=== PATIENT | female | born 1985 | race Caucasian/White ===

== ENCOUNTER → 2017-08-11 | Outpatient (CLI) | payer OTHER ==
[~2017-08-11] MED LIST: BUSP-8 PO; LMC25 PO; LTH300C PO; NRN300 PO; TRAZ1TAB16 PO
[2017-08-11 12:32] LABS: ALT/SGPT 19 U/L (12-78); AST/SGOT 16 U/L (15-37); BLOOD UREA NITROGEN 5 mg/dl (7-18); BUN/CREATININE RATIO 6.1 (10-20); CALCIUM 9.1 mg/dl (8.5-10.1); CARBON DIOXIDE 25 mmol/L (21-32); CHLORIDE 104 mmol/L (98-107); CREATININE 0.85 mg/dl (0.60-1.20); GLUCOSE 89 mg/dl (70-99); POTASSIUM 3.9 mmol/L (3.5-5.1); SODIUM 135 mmol/L (136-145)
[2017-08-11 12:42] LABS: ALB/GLOB RATIO 1.2 (0.9-2); ALKALINE PHOSPHATASE 77 U/L (45-117)
[2017-08-16 15:33] LABS: MICROSOMAL AB 6 IU/ML (<9); TESTOSTERONE,TOTAL 37 ng/dL (2-45); TSI <89 % baseline (<140)
--- NOTE | 2017-08-29 07:11 | CODING QUERY MEDICAL NECESSITY ---
CQSUPPORTING DIAGNOSIS NEEDED A supporting diagnosis is required for the test/procedure performed on this patient in order for us to be reimbursed by the patient's insurance. Please provide a supporting diagnosis for the following test/procedure listed below next to the test name along with your signature. *If there is no additional diagnosis for this patient that would support the following test/procedure please document that below next to the test/procedure. Test(s)/Procedure(s) that require a supporting diagnosis: DOS 08/11/17 VITAMIN D TEST THYROID TESTS Provider Signature: Date: Thank you Thelma Cruz Health Information Management Once completed, please kindly fax back to [phone] For questions please call [phone]
== END | disposition home or self-care (01) ==
LOC: C.LAB1850 10:12
PROVIDERS: ATTEND Internal Medicine Endocrinology, Diabetes & Metabolism
DX: E03.9 Hypothyroidism, unspecified (principal); M79.1 Myalgia; N25.1 Nephrogenic diabetes insipidus; L65.9 Nonscarring hair loss, unspecified; E05.00 Thyrotoxicosis with diffuse goiter without thyrotoxic crisis or storm; E55.9 Vitamin D deficiency, unspecified

== ENCOUNTER → 2017-08-15 | Outpatient (CLI) | payer OTHER ==
[2017-08-15 15:40] LABS: URINE APPEARANCE CLEAR (CLEAR); URINE BILIRUBIN NEG (NEG); URINE COLOR YELLOW; URINE NITRITE NEG (NEG); URINE PH 7.5 (4.5-7.5); UROBILINOGEN NEG (NEG)
[2017-08-15 15:57] LABS: BLOOD UREA NITROGEN 4 mg/dl (7-18); BUN/CREATININE RATIO 4.8 (10-20); CALCIUM 9.9 mg/dl (8.5-10.1); CARBON DIOXIDE 26 mmol/L (21-32); CHLORIDE 101 mmol/L (98-107); CREATININE 0.83 mg/dl (0.60-1.20); GLUCOSE 79 mg/dl (70-99); MANUAL MICROSCOPIC REQUIRED? NO; PHOSPHORUS 2.6 mg/dl (2.5-4.9); POTASSIUM 3.4 mmol/L (3.5-5.1); REVIEW REQ? NO; SODIUM 134 mmol/L (136-145)
== END | disposition home or self-care (01) ==
LOC: C.LAB1850 14:15
PROVIDERS: ATTEND Internal Medicine Nephrology
DX: N25.1 Nephrogenic diabetes insipidus (principal)

== ENCOUNTER 2017-09-10 23:37 | Emergency (ER) | payer OTHER ==
[~2017-09-10] VITALS: Ht 162.6 cm; Wt 74.7 kg
[2017-09-10 23:51] VITALS: TEMP 37.6; Ht 162.6 cm; Wt 74.7 kg
--- NOTE | 2017-09-11 00:11 | EMERGENCY ROOM VISIT NOTE ---
History First contact with patient: 23:54 Chief Complaint: TOE PAIN, INJURY Stated Complaint: POSSIBLE BROKEN TOE;NUMBNESS,TINGLING IN TOE/LEG History of Present Illness The patient is a 32 year old female who presents to the Emergency Room with complaints of an injury to the left second toe. The patient states that earlier in the day, her son was pushing an ottoman and the leg of the ottoman went over her left second toe. She states the pain worsened throughout the day and began radiating up her left leg with numbness of the leg. She rates her discomfort an 8/10. She is able to walk on the toe but states it is painful to do so. She reports some mild bruising. Review of Systems A 6 point review of systems was reviewed with the patient with pertinent positives and negatives as per history of present illness. All else were negative. Past Medical/Surgical History Medical Problems: (1) Asthma, Unspecified (2) sleeping disorder Family History Cancer FH: aneurysm Hypertension Lung disease Social History Smoking Status: Never Smoker Alcohol Use: occasionally Marital Status: single Housing Status: lives with family Occupation Status: unemployed Current/Historical Medications Scheduled Buspirone Hcl (Buspirone Hcl), 20 MG PO TID Gabapentin (Gabapentin), 300 MG PO TID Lamotrigine (Lamotrigine), 25 MG PO QAM [place] Carbonate ([place] Carbonate), 1 CAP PO UD Trazodone Hcl (Desyrel), 50 MG PO HS Physical Exam Vital Signs Date Time Temp Pulse Resp B/P (MAP) Pulse Ox O2 Delivery O2 Flow Rate FiO2 09/11/17 00:51 88 18 134/84 96 09/11/17 00:42 74 16 113/72 09/10/17 23:51 37.6 93 20 135/96 94 Room Air Physical Exam VITALS: Vitals are noted on the nurse's note and reviewed by myself. Vital signs stable. GENERAL: This is a 32-year-old female, in no acute distress, nondiaphoretic, well-developed well-nourished. SKIN: No lacerations or abrasions noted. MUSCULOSKELETAL: There is minimal bruising and tenderness to palpation of the left second toe. Full range of motion of all toes. NEURO: Patient was alert and oriented to person place and time. Normal sensation to light and sharp touch. Medical Decision & Procedures ER Provider Diagnostic Interpretation: TOE X-RAY: No acute fractures or dislocations noted. Medications Administered Medications (Trade) Dose Ordered Sig/Manas Route Start Time Stop Time Status Last Admin Dose Admin Acetaminophen (Tylenol Tab) 1,000 mg STK-MED ONCE PO 09/11/17 00:47 09/11/17 00:48 DC 09/11/17 00:49 1,000 MG Medical Decision Differential diagnosis includes fracture, contusion, dislocation, among others. The patient is a 32-year-old female who presents today complaining of toe pain after an injury which occurred earlier today. An x-ray was obtained and reviewed by myself with no obvious fractures or other bony abnormalities. Patient was placed in a postoperative shoe for comfort. Conservative measures were discussed with the patient. She will follow-up with orthopedics as needed. She verbalized understanding of my assessment and treatment plan and was discharged home in good condition. Medication Reconcilliation Current Medication List: was personally reviewed by me Blood Pressure Screening Patient's blood pressure: Normal blood pressure Impression Primary Impression: Contusion of toe of left foot Departure Information Dispostion Home / Self-Care Condition GOOD Referrals No Doctor, Assigned (PCP) Patient Instructions My [facility] Additional Instructions Wear the postoperative shoe as needed for pain in the toe. For pain control, you can use the following heyc-tyw-egqllkc medicines (if >12 yo): - Regular strength (325mg/tab) Tylenol (acetaminophen) 2 tabs every 4-6 hours as needed. Do not exceed 12 tablets in a 24 hour period. Avoid taking more than 4 grams (4000 mg) of Tylenol per day. This includes any other sources of acetaminophen you may take on a regular basis. - Regular strength (200 mg/tab) Advil (ibuprofen) 1-2 tabs every 4-6 hours as needed. Do not exceed a dose of 3200 mg per day. Apply ice to the toe and elevate for swelling/pain. Follow-up with your primary care provider if there are worsening or any new/ concerning symptoms. Problem Qualifiers Primary Impression: Contusion of toe of left foot Encounter type: initial encounter Toe: unspecified toe Qualified Codes: S90.122A - Contusion of left lesser toe(s) without damage to nail, initial encounter
[2017-09-11] MEDS ORDERED: ACETAMINOPHEN 500 MG TAB PO ONE (00:47)
[2017-09-11 00:51] VITALS: BP 134/84; PULSE 88; O2SAT 96
--- NOTE | 2017-09-11 07:48 | DIAGNOSTIC IMAGING REPORT ---
LEFT SECOND TOE 3 VIEWS HISTORY: left second toe pain, injury COMPARISON: None. FINDINGS: There is no fracture or dislocation. Mild distal soft tissue swelling. No radiopaque foreign bodies. IMPRESSION: No fractures. Electronically signed by: Arnaud Delgadillo M.D. 09/11/2017 7:47 AM Dictated Date/Time: 09/11/2017 7:45 AM
== END 2017-09-11 00:51 | disposition home or self-care (01) ==
LOC: C.EDB 23:38 → C.EDC 09-11 00:51
DX: S90.122A Contusion of left lesser toe(s) without damage to nail, initial encounter (principal); W22.8XXA Striking against or struck by other objects, initial encounter; J45.909 Unspecified asthma, uncomplicated; Z82.49 Family history of ischemic heart disease and other diseases of the circulatory system

== ENCOUNTER → 2017-09-13 | Outpatient (CLI) | payer OTHER ==
[2017-09-13 13:58] LABS: THYROID STIMULATING HORMONE 0.563 uIu/ml (0.300-4.500)
== END | disposition home or self-care (01) ==
LOC: C.LAB1850 12:05
PROVIDERS: ATTEND Internal Medicine Endocrinology, Diabetes & Metabolism
DX: N25.1 Nephrogenic diabetes insipidus (principal); L65.9 Nonscarring hair loss, unspecified; E03.9 Hypothyroidism, unspecified

== ENCOUNTER → 2017-12-16 | Outpatient (CLI) | payer OTHER ==
[~2017-12-16] MED LIST changes: +TRAZ-119 PO; -TRAZ1TAB16 PO
== END | disposition home or self-care (01) ==
LOC: C.LAB 09:25
PROVIDERS: ATTEND Internal Medicine Endocrinology, Diabetes & Metabolism
DX: L65.9 Nonscarring hair loss, unspecified (principal); E03.9 Hypothyroidism, unspecified; R35.8 Other polyuria

== ENCOUNTER → 2017-12-30 | Outpatient (CLI) | payer OTHER ==
[2018-01-03 16:32] LABS: TSI <89 % baseline (<140)
== END | disposition home or self-care (01) ==
LOC: C.LAB 11:13
PROVIDERS: ATTEND Internal Medicine Endocrinology, Diabetes & Metabolism
DX: E03.9 Hypothyroidism, unspecified (principal)

== ENCOUNTER → 2018-02-16 | Outpatient (CLI) | payer OTHER | END | disposition home or self-care (01) | LOC: C.LAB 11:46 | PROVIDERS: ATTEND Internal Medicine Endocrinology, Diabetes & Metabolism | DX: E03.9 Hypothyroidism, unspecified (principal) ==

== ENCOUNTER → 2018-04-09 | Outpatient (CLI) | payer OTHER | END | disposition home or self-care (01) | LOC: C.LAB 08:58 | PROVIDERS: ATTEND Internal Medicine Endocrinology, Diabetes & Metabolism | DX: E03.9 Hypothyroidism, unspecified (principal) ==

== ENCOUNTER 2022-03-09 08:46 | Inpatient (IN) ==
[2022-03-10] MEDS ORDERED: OXYTOCIN 30 UNITS/500 ML BAG IV PRN (07:50)
[2022-03-10] MEDS ORDERED: LACTATED RINGER'S 1,000 ML IV PRN (07:50)
[2022-03-10 08:25] LABS: Hematocrit (blood only) 38.5 % (37-47); Hemoglobin 13.3 g/dL (12.0-16.0); Mean Corpuscular Hemoglobin 30.7 pg (25-34); Mean Corpuscular Hgb Conc 34.5 g/dL (32-36); Mean Corpuscular Volume 88.9 fL (80-100); Mean Platelet Volume 11.4 fL (7.4-10.4); Platelet Count 210 K/uL (130-400); RDW Coefficient of Variation 13.5 % (11.5-14.5); RDW Standard Deviation 44.2 fL (36.4-46.3); Red Blood Count 4.33 M/uL (4.2-5.4); White Blood Count 14.91 K/uL (4.8-10.8)
[2022-03-10] MEDS ORDERED: DINOPROSTONE 10 MG INSERT PV ONE (08:34)
--- NOTE | 2022-03-10 08:40 | History & Physical Report ---
Date of Service March 10, 2022 Assessment & Plan (1) : Plan: Cervidil for cervical ripening Admission and Anticipated Discharge Date Admission Date: March 10, 2022 History of Present Illness Chief Complaint: INDUCTION OF LABOR Primary Care Provider: Calderon Rubi MD 36 F [id number] at 40.4 weeks admitted for induction of labor for post dates . Allergies Allergy/AdvReac Type Severity Reaction Status Date / Time fluoxetine Allergy Severe Depression Verified 03/10/22 08:04 nickel Allergy Mild Rash Verified 03/10/22 08:04 house dust Allergy Sneezing Verified 03/10/22 08:04 pollen extracts Allergy Sneezing Verified 03/10/22 08:04 Home Medications Medication Instructions Recorded Confirmed Type prenat.vits,gera,nvk-dutk-psvof 1 tab PO DAILY 03/10/22 03/10/22 History Patient History Medical History Asthma Childhood Bipolar affective disorder, mixed Depressive disorder, not elsewhere classified Graves disease Jayesh's thyroiditis History of hyperthyroidism Patient reports not a current problem. Hypoglycemia Occasionally Hypothyroidism Patient reports that her thyroid fluctuates between hyperthyroid and hypothyroid. Mood disorder Vitamin D deficiency Surgical History [place] teeth removed Family History Grandmother (Maternal) Hypertension Social History Smoking Status: Former smoker Tobacco Type: Cigarettes Hx Alcohol Use: No Hx Substance Use: Yes Prescribed Medications: Marijuana Prescribed Medications Comment: September 2021 last used Substance Use Type Other:: September 2021 Preferred Language: Telugu Communication Ability: Effective Visual Impairment: No Limitations Hearing Ability: Normal Licensed Insurance Agent Required: No Beliefs That Will Affect Care: None marital status: Single marital status details: Gabriele Jordan Current Living Situation: Alone Current Living Situation Comment: Patient lives in an apartment. 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 elective ab x5 Review of Systems All systems reviewed & are unremarkable except as noted in HPI & below Physical Exam Constitutional: WD/WN, vitals as above Eyes: PERRL, conjunctivae normal, anicteric sclerae Respiratory: normal respiratory effort, lungs clear to auscultation Cardiovascular: RRR, no murmur, no edema Skin: no rashes, warm and dry Neurologic: patellar DTR's 2+ bilat, sensation intact Psychiatric: A+Ox3, euthymic affect Genitourinary: no vaginal lesions, no adnexal mass OB Exam Abdomen: + fundal height and + estimated weight (7.5-8 lbs.) Manual OB Exam: + cervical dilation fingertip, + cervical effacement 20% and + station high OB Exam Monitor Tracing: + external FHT monitor used, + external uterine monitor used, + category I and + normal FHT variability Results & Data ([facility]) Vital Signs (Past 12 Hours) Vital Signs Temp Pulse Resp BP 03/10/22 08:06 36.5 C 20 03/10/22 07:55 112 H 135/96 Laboratory Results Laboratory Results - last 24 hr 03/10/22 08:04 WBC 14.91 H RBC 4.33 Hgb 13.3 Hct 38.5 MCV 88.9 MCH 30.7 MCHC 34.5 RDW Std Deviation 44.2 RDW Coeff of Rodolfo 13.5 Plt Count 210 MPV 11.4 H
--- NOTE | 2022-03-10 09:35 | Labor Progress Brief Note ---
Date of Service March 10, 2022 Assessment & Plan Admission and Anticipated Discharge Date Admission Date: March 10, 2022 Physical Exam Genitourinary: OB Exam Monitor Tracing: + external FHT monitor used, + external uterine monitor used, + category I and + normal FHT variability Cervidil 10 mg placed vaginally Results & Data ([facility]) Vital Signs (Past 12 Hours) Vital Signs Temp Pulse Resp BP 03/10/22 08:06 36.5 C 20 03/10/22 07:55 112 H 135/96
--- NOTE | 2022-03-10 21:18 | Labor Progress Brief Note ---
Date of Service March 10, 2022 Assessment & Plan Admission and Anticipated Discharge Date Admission Date: March 10, 2022 Physical Exam Genitourinary: Manual OB Exam: + cervical dilation fingertip, + cervical effacement 50% and + station high OB Exam Monitor Tracing: + external FHT monitor used, + external uterine monitor used, + category I and + normal FHT variability Cervidil pulled from vagina. cervix softening and still posterior. will use Cytotec 50 mcg q 4h to continue ripening Results & Data ([facility]) Vital Signs (Past 12 Hours) Vital Signs Temp Pulse Resp BP 03/10/22 19:30 36.8 C 18 03/10/22 19:27 94 H 141/95 H 03/10/22 19:26 97 H 144/106 H 03/10/22 19:25 100 H 139/99 03/10/22 15:05 36.8 C 100 H 18 133/98 03/10/22 12:28 36.6 C 03/10/22 11:43 36.8 C 91 H 18 142/85 H
[2022-03-10] MEDS ORDERED: BUTORPHANOL TARTRATE 1 MG/ML VIAL IV PRN (21:20)
[2022-03-11] MEDS ORDERED: miSOPROStoL 50 MCG TAB ONE ×2 (00:04→04:40)
[2022-03-11] MEDS: CALCIUM CARBONATE 500 MG CHEWABLE TAB PO PRN ×2 (00:07→04:56)
[2022-03-11 08:29] LABS: Basophils # (auto) 0.05 K/uL (0-0.2); Basophils % (auto) 0.4 %; Eosinophils # (auto) 0.34 K/uL (0-0.5); Eosinophils % (auto) 2.9 %; Hematocrit (blood only) 38.9 % (37-47); Hemoglobin 13.3 g/dL (12.0-16.0); Immature Granulocytes # (auto) 0.24 K/uL (0.00-0.02); Lymphocytes # (auto) 2.33 K/uL (1.2-3.4); Lymphocytes % (auto) 19.9 %; Mean Corpuscular Hemoglobin 30.7 pg (25-34); Mean Corpuscular Hgb Conc 34.2 g/dL (32-36); Mean Corpuscular Volume 89.8 fL (80-100); Mean Platelet Volume 11.8 fL (7.4-10.4); Monocytes # (auto) 1.32 K/uL (0.11-0.59); Monocytes % (auto) 11.3 %; Neutrophils # (auto) 7.43 K/uL (1.4-6.5); Neutrophils % (auto) 63.5 %; Platelet Count 175 K/uL (130-400); RDW Coefficient of Variation 13.7 % (11.5-14.5); Red Blood Count 4.33 M/uL (4.2-5.4); White Blood Count 11.71 K/uL (4.8-10.8)
[2022-03-11] MEDS ORDERED: LACTATED RINGER'S 1,000 ML IV SCH ×3 (08:30→13:00)
--- NOTE | 2022-03-11 08:30 | Obstetrical Progress Note ---
Date of Service March 11, 2022 Assessment & Plan Admission and Anticipated Discharge Date Admission Date: March 10, 2022 Subjective Patient is seen and examined. Reviewed her history from her records and confi rmed with her. She was admitted yesterday by Dr. Ascencio for induction of labor for postdates. She received 1 dose of Cervidil which was removed last night and took 2 doses of p.o. Cytotec. She has been feeling contractions for the last 12 hours or so. They have been coming every 2 to 3 minutes and pain is 7 out of 10. She denies leakage of fluid or vaginal bleeding. She reports good movements. GBS is negative. Her prior [facility] was done here as well as in [place] for part of her . She had ultrasound in [place] as well as here at [facility] and baby has been measuring normal and cephalic presentation. heart rate has been in the category 1, [place] showing contractions every 2 to 3 minutes, Vaginal exam: cervix is tight 1 cm, 50% effaced, unable to feel any presenting part. Bedside ultrasound confirmed breech presentation. Discussed the findings and risks of vaginal breech delivery and recommended primary delivery. Understands it is a major surgery with risks of bleeding, infection, injury to surrounding organs, longer recovery, increased risk of DVT, PE. Plan, IV fluids, n.p.o., labs, proceed with primary . Patient agrees with plan. All questions were answered. Results & Data ([facility]) Vital Signs (Past 12 Hours) Vital Signs Temp Pulse Resp BP 03/11/22 07:36 37.7 C H 20 03/11/22 07:33 80 137/93 03/11/22 06:38 92 H 131/92 03/11/22 04:52 90 144/94 H 03/11/22 00:08 85 147/85 H 03/11/22 00:00 36.7 C 18 03/10/22 23:43 96 H 137/91
[2022-03-11 08:45] LABS: Albumin Globulin Ratio 1.3 (0.9-2); Albumin Level 3.3 gm/dl (3.4-5.0); Bilirubin,Total 0.2 mg/dl (0.2-1.0); Calcium 10.2 mg/dl (8.5-10.1); Creatinine Clr Calc Pharmacy 106.6 ml/min; Est GFR (African American) 108.2 ml/min; Est GFR (Non-African American) 93.4 ml/min; Globulin 2.6 gm/dl (2.5-4.0); Potassium 4.3 mmol/L (3.5-5.1); Total Protein 5.9 gm/dl (6.0-8.3)
[2022-03-11] MEDS ORDERED: ceFAZolin 2000MG 2,000 MG/15 ML SYR IV SCH (09:00)
[2022-03-11] MEDS ORDERED: CITRIC ACID/SODIUM CITRATE 15 ML UDC PO SCH (09:00)
[2022-03-11] MEDS ORDERED: MoRPHine SULFATE PF 1 MG/ML 10 ML AMP/VIAL ONE (11:38)
[2022-03-11] MEDS ORDERED: KETOROLAC 30 MG/ML VIAL IV PRN (12:01)
--- NOTE | 2022-03-11 12:11 | Anesthesiology Consultation ---
Date of Service March 11, 2022 Assessment & Plan Chart Review Chart Review: Acceptable Risk for Surgery Consults Requested none History Surgery Operation Date: 03/11/22 08:20 Proposed Procedures p Section in LD - Leny Ann MD Height/Weight Height: 5 ft 4 in Weight: 92.533 kg Allergies Allergy/AdvReac Type Severity Reaction Status Date / Time fluoxetine Allergy Severe Depression Verified 03/10/22 08:04 nickel Allergy Mild Rash Verified 03/10/22 08:04 house dust Allergy Sneezing Verified 03/10/22 08:04 pollen extracts Allergy Sneezing Verified 03/10/22 08:04 Medications Home Medications Medication Instructions Recorded Confirmed Last Taken prenat.vits,gera,rnc-ypyx-ymhmw 1 tab PO DAILY 03/10/22 03/10/22 03/10/22 Active Medications Generic Name Dose Route Start Last Admin Trade Name Freq PRN Reason Stop Dose Admin Calcium Carbonate 500 mg 03/10/22 23:46 03/11/22 04:56 Calcium Carbonate 500 Mg Chewable Tab PO 04/09/22 23:45 500 mg Q4 PRN Administration Indigestion Lactated Ringer's 1,000 mls @ 125 mls/hr 03/11/22 09:30 03/11/22 09:30 Lr IV 04/10/22 09:29 125 mls/hr .Q8H JORDEN Administration Past Medical History Medical History Asthma Childhood Bipolar affective disorder, mixed Depressive disorder, not elsewhere classified Graves disease Jayesh's thyroiditis History of hyperthyroidism Patient reports not a current problem. Hypoglycemia Occasionally Hypothyroidism Patient reports that her thyroid fluctuates between hyperthyroid and hypothyroid. Mood disorder Vitamin D deficiency Past Family History Family History Grandmother (Maternal) Hypertension Past Surgical History Surgical History [place] teeth removed Social History Smoking Status: Former smoker Hx Alcohol Use: No Hx Substance Use: Yes substance use type: marijuana Substance Use Type Other:: September 2021 Physical Exam Vital Signs Last Vital Signs Temp 37.7 C H 03/11/22 07:36 Pulse 98 H 03/11/22 10:53 Resp 20 03/11/22 07:36 BP 160/106 H 03/11/22 10:53 Testing Laboratory Results 03/11/22 08:01 03/11/22 08:01
[2022-03-11] MEDS ORDERED: fentaNYL citrate 100 MCG/2 ML VIAL ONE (12:17)
[2022-03-11] MEDS ORDERED: OXYTOCIN 10 UNITS/ML 10ML VIAL ONE (12:18)
[2022-03-11] MEDS ORDERED: LACTATED RINGER'S 500 ML IV PRN (12:23)
[2022-03-11] MEDS ORDERED: ePHEDrine sulfate 50 MG/ML AMP IV PRN (12:23)
[2022-03-11] MEDS ORDERED: NALBUPHINE HCL INJ 10 MG/ML AMP IV PRN (12:23)
[2022-03-11] MEDS ORDERED: HYDROmorphone INJ 0.5 MG/0.5 ML SYR IV PRN (12:23)
[2022-03-11] MEDS ORDERED: NALOXONE HCL 0.08 MG in SYRINGE 1.8 ML IV PRN (12:23)
[2022-03-11] MEDS ORDERED: MoRPHine SULFATE PF 1 MG/ML 10 ML AMP/VIAL INT SPINAL ONE (12:23)
[2022-03-11] MEDS ORDERED: diphenhydrAMINE 50 MG/ML VIAL IV PRN (12:23)
[2022-03-11] MEDS ORDERED: NALOXONE HCL 0.4 MG/1 ML VIAL/CARP IV PRN (12:23)
[2022-03-11] MEDS ORDERED: NALOXONE HCL 1 MG in SODIUM CHLORIDE 0.9% 1000ML 1,000 ML IV PRN (12:23)
[2022-03-11] MEDS ORDERED: NO NARCOTICS OR SEDATIVES SCH (12:30)
[2022-03-11] MEDS ORDERED: SODIUM CHLORIDE 0.9% 1000ML 1,000 ML IV SCH (12:30)
[2022-03-11] MEDS ORDERED: DC INTRASPINAL MORPHINE SCH (12:30)
[2022-03-11] MEDS ORDERED: ePHEDrine sulfate 50 MG/ML SYR ONE (12:52)
[2022-03-11] MEDS ORDERED: MAGNESIUM HYDROXIDE SUSP 30 ML UDC PO PRN (12:55)
[2022-03-11] MEDS ORDERED: HYDROCORTISONE ACETATE 25 MG SUPP PR PRN (12:55)
[2022-03-11] MEDS ORDERED: BENZOCAINE 20% AER SPR 82.5 GM CAN EXT PRN (12:55)
[2022-03-11] MEDS ORDERED: DIPHTHERIA/TETANUS/PERTUSSIS 0.5 ML SYR/VIAL IM ONE (12:55)
[2022-03-11] MEDS ORDERED: SENNA 8.6 MG TAB PO PRN (12:55)
[2022-03-11] MEDS ORDERED: MEASLES, MUMPS & RUBELLA VIRUS VIAL SQ ONE (12:55)
--- NOTE | 2022-03-11 13:00 | Post Operative Brief Note ---
Immediate Post Op Note v1 Date of Surgery March 11, 2022 Pre & Post Diagnosis Operation Date: 03/11/22 08:20 Pre-Op Diagnosis: Breech Presentation Post-Op Diagnosis: Breech Presentation I identified the patient and participated in the time-out.: Yes Procedure Operation Date: 03/11/22 08:20 Actual Procedures p Section in LD; Live Female at 1209(Bilateral) - Leny Mireles MD Surgeon Leny Ann MD Polysomnographic Technician RAFITA Levin Estimated Blood Loss 600 Findings Consistent with Post-Op Diagnosis Drains Daugherty Catheter Anesthesia Type Spinal Complications none
--- NOTE | 2022-03-11 13:40 | Operative Report (OR) ---
DATE OF SURGERY: 03/10/2022. POSTOPERATIVE DIAGNOSES: The patient is a 36-year-old G2, P1-0-0-1, at 40 weeks and 5 days of gestation, who was scheduled for induction of labor for postdates found to be complete breech presentation. POSTOPERATIVE DIAGNOSES: The patient is a 36-year-old G2, P1-0-0-1, at 40 weeks and 5 days of gestation, who was scheduled for induction of labor for postdates found to be complete breech presentation. PROCEDURE: Primary low transverse with Pfannenstiel skin incision. SURGEON: Leny Ann MD MARKET INVESTIGATOR: RAFITA Levin ESTIMATED BLOOD LOSS: 600 mL. DRAINS: Daugherty catheter drained 375 mL of clear urine. ANESTHESIA: Spinal. ANESTHESIOLOGIST: Dr. Arriola. COMPLICATIONS: None. FINDINGS: Baby was a viable female delivered in complete breech presentation at 12:09 am, Apgars were 8/9, weight is 4269 gr. Maternal findings, normal uterus, fallopian tubes, and ovaries. DESCRIPTION OF PROCEDURE: The patient was taken to the operating room where spinal anesthesia was given without difficulty. She was placed in dorsal supine position with a leftward tilt. She was prepared and draped in the usual sterile fashion. A Pfannenstiel skin incision was made, carried through to the underlying layer of fascia with the Bovie. Fascia was incised in the midline. Incision was extended laterally with the help of Aguilar scissors. Upper aspect of the fascial incision was grasped with 2 Livier clamps, elevated, and underlying rectus muscles were dissected off sharply with Aguilar scissors. Same thing was done on the lower aspect of the fascial incision. Rectus muscles were in the midline. Peritoneum was entered bluntly with fingers. Peritoneal incision was extended superiorly and inferiorly with good visualization of the bladder. A bladder blade was inserted. Vesicouterine peritoneum was identified, grasped with pickups, entered sharply with Metzenbaum scissors. Bladder flap was created digitally and bladder blade was reinserted. Lower uterine segment was incised in a transverse fashion. Incision was extended laterally with the bandage scissors. Membranes were ruptured. Clear fluid was obtained. Baby's feet were delivered and then legs and then buttocks and then the abdomen, body, and then arms in flexion and the head without difficulty within less than a minute. Mouth and nose were suctioned. Cord was clamped x2 and cut at 1-minute delay. Baby was vigorously moving and crying at that point. Baby was handed off to the waiting pediatric team with Dr. Bertrand. Then the cord blood was obtained and placenta was delivered manually as intact and complete. Unable to exteriorize uterus due to its size. It appeared to be normal, but enlarged. It was kept inside of the pelvis and abdomen. The uterus was cleared of all clots and debris inside and was firm and well contracted. Uterine incision was repaired with 0 Vicryl in a running locked fashion and a second imbricating layer was placed with another suture in a running locked fashion. There was oozing close to the left corner, which was controlled with yfqpxh-lb-pjptt stitches x2 and the incision was hemostatic. Then the gutters were cleared of all clots and debris, irrigated with warm normal saline and suctioned, and ovaries and fallopian tubes were checked to be normal and the pelvis was irrigated with warm normal saline and suctioned. Incision was checked to be hemostatic again. Parietal peritoneum was reapproximated with 3-0 Vicryl in a running fashion. Rectus muscles were brought together with the same suture in a running fashion. Then under the rectus fascia and over the rectus muscles were checked to be hemostatic. Rectus fascia was reapproximated with 0 Vicryl in a running fashion starting from both corners meeting in the midline and the subcuticular fat tissue was brought together with 3-0 Vicryl in a running fashion. Skin was closed with lela. The patient tolerated the procedure well. Sponge, lap, needle count was correct x3. No complications happened. I was present and my PA was present during whole procedure. My bilingual executive assistant was needed for retraction, visualization, hemostasis, control, and aid in delivery of the baby. Job ID: [id number] [facility]
--- NOTE | 2022-03-11 16:05 | Anesthesiology Progress Note ---
Date of Service March 11, 2022 Anesthesia Post Procedure Vital Signs Vital Signs: Temp Pulse Resp BP Pulse Ox 03/11/22 15:57 99 H 97 03/11/22 15:52 91 H 97 03/11/22 15:47 102 H 97 03/11/22 15:42 94 H 97 03/11/22 15:37 102 H 98 03/11/22 15:32 101 H 97 03/11/22 15:31 100 H 134/94 03/11/22 15:27 98 H 98 03/11/22 15:22 98 H 98 03/11/22 15:17 93 H 98 03/11/22 15:12 99 H 99 03/11/22 15:10 92 H 92 03/11/22 15:07 91 H 96 03/11/22 15:05 100 H 91 03/11/22 15:02 96 H 97 03/11/22 15:00 36.5 C 20 03/11/22 14:57 93 H 99 03/11/22 14:52 83 99 03/11/22 14:51 99 H 136/87 03/11/22 14:48 101 H 92 03/11/22 14:47 99 H 98 03/11/22 14:42 99 H 100 03/11/22 14:41 83 137/89 03/11/22 14:37 88 99 03/11/22 14:32 80 99 03/11/22 14:31 75 136/88 03/11/22 14:30 20 03/11/22 14:29 94 H 91 03/11/22 14:27 92 H 100 03/11/22 14:22 87 100 03/11/22 14:21 83 137/94 03/11/22 14:17 81 99 03/11/22 14:12 91 H 100 03/11/22 14:11 95 H 138/91 03/11/22 14:07 93 H 99 03/11/22 14:02 90 20 91 03/11/22 14:01 99 H 147/92 H 03/11/22 14:00 20 03/11/22 13:57 109 H 95 03/11/22 13:53 106 H 143/92 H 03/11/22 13:52 110 H 99 03/11/22 13:51 105 H 94 03/11/22 13:50 20 03/11/22 13:47 108 H 98 03/11/22 13:42 103 H 130/89 97 03/11/22 13:40 107 H 20 92 03/11/22 13:37 101 H 99 03/11/22 13:32 120 H 137/89 98 03/11/22 13:30 20 03/11/22 13:27 101 H 98 03/11/22 13:23 99 H 142/77 H 03/11/22 13:22 110 H 98 03/11/22 13:20 20 03/11/22 13:17 99 H 98 03/11/22 13:12 92 H 121/68 99 03/11/22 13:11 81 93 03/11/22 13:10 20 03/11/22 13:07 112 H 97 03/11/22 13:02 89 98 03/11/22 13:00 36.4 C L 104 H 20 129/78 03/11/22 10:53 98 H 160/106 H 03/11/22 10:48 83 146/102 H 03/11/22 07:36 37.7 C H 20 03/11/22 07:33 80 137/93 03/11/22 06:38 92 H 131/92 03/11/22 04:52 90 144/94 H 03/11/22 00:08 85 147/85 H 03/11/22 00:00 36.7 C 18 03/10/22 23:43 96 H 137/91 03/10/22 19:30 36.8 C 18 03/10/22 19:27 94 H 141/95 H 03/10/22 19:26 97 H 144/106 H 03/10/22 19:25 100 H 139/99 Transfer of Care Handoff Completed per policy Notes Mental Status: alert / awake / arousable and participated in evaluation Patient Amnestic to Procedure: Yes Nausea / Vomiting: adequately controlled Pain: adequately controlled Airway Patency, RR, SpO2: stable & adequate BP & HR: stable & adequate Hydration State: stable & adequate Neuraxial Anesthesia: was administered and sensory block is resolving Anesthetic Complications: no major complications apparent
[2022-03-11] MEDS: OXYTOCIN 20 UNITS in LACTATED RINGER'S 1,000 ML IV SCH (17:25)
[2022-03-11] MEDS ORDERED: ceFAZolin 2000MG 2,000 MG/15 ML SYR IV ONE (18:00)
[2022-03-11] MEDS: SIMETHICONE 80 MG CHEW PO SCH ×3 (19:14→21:09)
[2022-03-11] MEDS: KETOROLAC 30 MG/ML VIAL IV PRN (21:09)
[2022-03-11] MEDS: DOCUSATE SODIUM 100 MG CAP PO SCH (21:09)
[2022-03-11] MEDS ORDERED: miSOPROStoL 50 MCG TAB PO SCH (21:30)
[2022-03-12] MEDS: OXYTOCIN 20 UNITS in LACTATED RINGER'S 1,000 ML IV SCH (01:29)
[2022-03-12] MEDS: KETOROLAC 30 MG/ML VIAL IV PRN (03:59)
[2022-03-12] MEDS ORDERED: ceFAZolin 2000MG 2,000 MG/15 ML SYR IV SCH (06:00)
[2022-03-12] MEDS ORDERED: CITRIC ACID/SODIUM CITRATE 15 ML UDC PO SCH (06:00)
[2022-03-12] MEDS ORDERED: PROMETHAZINE HCL 25 MG in SODIUM CHLORIDE 0.9% 50 ML IV PRN (06:23)
[2022-03-12] MEDS ORDERED: ONDANSETRON INJ 2 MG/ML 2 ML VIAL IV PRN (06:23)
[2022-03-12] MEDS ORDERED: diphenhydrAMINE Capsule 25 MG CAP PO PRN (06:23)
[2022-03-12] MEDS ORDERED: MEPERIDINE HCL 50 MG/ML CARP IV PRN (06:23)
[2022-03-12] MEDS ORDERED: diphenhydrAMINE 50 MG/ML VIAL IV PRN (06:23)
[2022-03-12] MEDS ORDERED: KETOROLAC 30 MG/ML VIAL IV PRN (06:23)
[2022-03-12] MEDS ORDERED: PRENATAL VITAMIN 1 TAB PO SCH (08:00)
[2022-03-12] MEDS: oxyCODONE/ACETAMINOPHEN 5mg/325mg TAB PO PRN ×4 (08:11→23:18)
[2022-03-12] MEDS: IBUPROFEN 600 MG TAB PO PRN ×4 (08:12→23:17)
[2022-03-12] MEDS: FERROUS SULFATE 325 MG TAB PO SCH (08:12)
[2022-03-12] MEDS: SIMETHICONE 80 MG CHEW PO SCH ×4 (08:12→21:23)
[2022-03-12] MEDS: DOCUSATE SODIUM 100 MG CAP PO SCH ×2 (08:12→20:05)
[2022-03-12 08:38] LABS: Basophils # (auto) 0.03 K/uL (0-0.2); Basophils % (auto) 0.2 %; Eosinophils # (auto) 0.13 K/uL (0-0.5); Eosinophils % (auto) 0.7 %; Hematocrit (blood only) 34.5 % (37-47); Hemoglobin 11.8 g/dL (12.0-16.0); Immature Granulocytes # (auto) 0.18 K/uL (0.00-0.02); Lymphocytes # (auto) 1.96 K/uL (1.2-3.4); Lymphocytes % (auto) 10.6 %; Mean Corpuscular Hemoglobin 30.4 pg (25-34); Mean Corpuscular Hgb Conc 34.2 g/dL (32-36); Mean Corpuscular Volume 88.9 fL (80-100); Mean Platelet Volume 11.7 fL (7.4-10.4); Monocytes # (auto) 1.69 K/uL (0.11-0.59); Monocytes % (auto) 9.1 %; Neutrophils # (auto) 14.58 K/uL (1.4-6.5); Neutrophils % (auto) 78.4 %; Platelet Count 176 K/uL (130-400); RDW Coefficient of Variation 13.7 % (11.5-14.5); RDW Standard Deviation 44.3 fL (36.4-46.3); Red Blood Count 3.88 M/uL (4.2-5.4); White Blood Count 18.57 K/uL (4.8-10.8)
--- NOTE | 2022-03-12 09:22 | Obstetrical Progress Note ---
Date of Service March 12, 2022 Assessment & Plan (1) delivery delivered: c/sec day #1 pt doing well continue day #1 care Subjective Ambulation: ambulating normally Voiding: no voiding problems Passing Gas:: Yes Diet Tolerance:: clear liquids Lochia:: Small Feeding Type:: breast feeding Review of Systems All systems reviewed & are unremarkable except as noted in HPI & below Physical Exam Constitutional WD/WN, vitals as above well developed and well nourished Eyes PERRL, conjunctivae normal, anicteric sclerae ENMT external ear and nose normal, oropharynx normal Neck trachea midline, no thyromegaly Respiratory normal respiratory effort, lungs clear to auscultation Cardiovascular RRR, no murmur, no edema Chest (Breasts) normal inspection/palpation of breasts Gastrointestinal (Abdomen) normal bowel sounds, soft, nontender, no hepatosplenomegaly Musculoskeletal no cyanosis or clubbing, extremities motor strength 5/5 Skin no rashes, warm and dry + incision (Clean,dry and intact) Neurologic patellar DTR's 2+ bilat, sensation intact Psychiatric A+Ox3, euthymic affect Genitourinary normal external appearance Lymphatic no cervical or axillary lymphadenopathy Results & Data ([facility]) Vital Signs (Past 12 Hours) Vital Signs Temp Pulse Resp BP Pulse Ox 03/12/22 07:55 36.5 C 80 18 126/83 03/12/22 05:20 18 96 03/12/22 04:05 18 98 03/12/22 03:45 36.7 C 89 18 130/87 98 03/12/22 03:20 18 96 03/12/22 02:15 18 96 03/12/22 01:30 18 98 03/12/22 00:25 18 97 03/11/22 23:20 36.8 C 81 18 125/87 98 03/11/22 22:25 18 98 03/11/22 21:25 18 98
[2022-03-12] MEDS ORDERED: bisacodyL 5 MG TABEC PO SCH (20:00)
[2022-03-13] MEDS: DOCUSATE SODIUM 100 MG CAP PO SCH (07:48)
[2022-03-13] MEDS: SIMETHICONE 80 MG CHEW PO SCH ×2 (07:48→14:19)
[2022-03-13] MEDS: oxyCODONE/ACETAMINOPHEN 5mg/325mg TAB PO PRN ×2 (07:48→14:19)
[2022-03-13] MEDS: IBUPROFEN 600 MG TAB PO PRN ×2 (07:48→14:20)
[2022-03-13] MEDS: FERROUS SULFATE 325 MG TAB PO SCH (07:48)
[2022-03-13 08:36] LABS: Mean Corpuscular Hemoglobin 30.3 pg (25-34); Mean Corpuscular Hgb Conc 33.3 g/dL (32-36); Mean Corpuscular Volume 90.9 fL (80-100); Mean Platelet Volume 10.6 fL (7.4-10.4); Platelet Count 171 K/uL (130-400); RDW Coefficient of Variation 13.8 % (11.5-14.5); RDW Standard Deviation 45.6 fL (36.4-46.3); White Blood Count 17.63 K/uL (4.8-10.8)
[2022-03-13 09:02] LABS: ALC (manual) 3.72 K/uL (1.2-3.4); ANC (manual) 13.12 K/uL (1.4-6.5); Basophils # (manual) 0.32 K/uL (0-0.2); Basophils % (manual) 1.8 %; Eosinophils # (manual) 0.16 K/uL (0-0.5); Eosinophils % (manual) 0.9 %; Lymphocytes # (manual) 3.72 K/uL (1.2-3.4); Lymphocytes % (manual) 21.1 %; Monocytes # (manual) 0.32 K/uL (0.11-0.59); Monocytes % (manual) 1.8 %; Neutrophils # (manual) 13.12 K/uL (1.4-6.5); Neutrophils % (manual) 74.4 %
[2022-03-13] MEDS ORDERED: bisacodyL 10 MG SUPP PR PRN (12:55)
--- NOTE | 2022-03-13 13:23 | Obstetrical Progress Note ---
Date of Service March 13, 2022 Assessment & Plan Admission and Anticipated Discharge Date Admission Date: March 10, 2022 Subjective Patient is seen and examined. She feels well, no complaints. Desires d/c today Ambulating without dizziness Voiding without difficulty Tolerating regular diet with out N&V Bleeding is minimal No fever/ chills/ CP/ SOB/ N&V/ Leg pain Flatus+, BM+ Bottle feeding without problems Vital Signs Temp Pulse Resp BP Pulse Ox 03/13/22 08:00 36.1 C L 109 H 18 132/88 03/12/22 23:15 36.5 C 100 H 18 123/85 98 03/12/22 19:45 36.6 C 118 H 20 121/83 100 Lab Results 03/10/22 03/11/22 03/11/22 Range/Units 08:04 08:01 08:01 WBC 14.91 H 11.71 H (4.8-10.8) K/uL RBC 4.33 4.33 (4.2-5.4) M/uL Hgb 13.3 13.3 (12.0-16.0) g/dL Hct 38.5 38.9 (37-47) % MCV 88.9 89.8 (80-100) fL MCH 30.7 30.7 (25-34) pg MCHC 34.5 34.2 (32-36) g/dL RDW Std Deviation 44.2 45.0 (36.4-46.3) fL RDW Coeff of Rodolfo 13.5 13.7 (11.5-14.5) % Plt Count 210 175 (130-400) K/uL MPV 11.4 H 11.8 H (7.4-10.4) fL Immature Gran % (Auto) 2.0 % Neut % (Auto) 63.5 % Lymph % (Auto) 19.9 % [place] % (Auto) 11.3 % Eos % (Auto) 2.9 % Baso % (Auto) 0.4 % Neut # (Auto) 7.43 H (1.4-6.5) K/uL Lymph # (Auto) 2.33 (1.2-3.4) K/uL [place] # (Auto) 1.32 H (0.11-0.59) K/uL Eos # (Auto) 0.34 (0-0.5) K/uL Baso # (Auto) 0.05 (0-0.2) K/uL Immature Gran # (Auto) 0.24 H (0.00-0.02) K/uL Neutrophils % (Manual) % Lymphocytes % (Manual) % Monocytes % (Manual) % Eosinophils % (Manual) % Basophils % (Manual) % Neutrophils # (Manual) (1.4-6.5) K/uL Total Absolute Neuts (1.4-6.5) K/uL Lymphocytes # (Manual) (1.2-3.4) K/uL Total Abs Lymphocytes (1.2-3.4) K/uL Monocytes # (Manual) (0.11-0.59) K/uL Eosinophils # (Manual) (0-0.5) K/uL Basophils # (Manual) (0-0.2) K/uL Sodium 135 L (136-145) mmol/L Potassium 4.3 (3.5-5.1) mmol/L Chloride 109 H (98-107) mmol/L Carbon Dioxide 20 L (21-32) mmol/L Anion Gap 6 (3-11) BUN 13 (6-23) mg/dl Creatinine 0.82 (0.6-1.2) mg/dl Est Cr Clr Drug Dosing 106.6 ml/min Est GFR ( Amer) 108.2 ml/min Est GFR (Non-Af Amer) 93.4 ml/min Fasting Glucose 78 (70-99) mg/dl Calcium 10.2 H (8.5-10.1) mg/dl Total Bilirubin 0.2 (0.2-1.0) mg/dl AST 22 (13-39) U/L ALT 12 (7-52) U/L Alkaline Phosphatase 191 H (34-104) U/L Total Protein 5.9 L (6.0-8.3) gm/dl Albumin 3.3 L (3.4-5.0) gm/dl Globulin 2.6 (2.5-4.0) gm/dl Albumin/Globulin Ratio 1.3 (0.9-2) 03/12/22 03/13/22 Range/Units 06:47 08:17 WBC 18.57 H 17.63 H (4.8-10.8) K/uL RBC 3.88 L 3.30 L (4.2-5.4) M/uL Hgb 11.8 L 10.0 L (12.0-16.0) g/dL Hct 34.5 L 30.0 L (37-47) % MCV 88.9 90.9 (80-100) fL MCH 30.4 30.3 (25-34) pg MCHC 34.2 33.3 (32-36) g/dL RDW Std Deviation 44.3 45.6 (36.4-46.3) fL RDW Coeff of Rodolfo 13.7 13.8 (11.5-14.5) % Plt Count 176 171 (130-400) K/uL MPV 11.7 H 10.6 H (7.4-10.4) fL Immature Gran % (Auto) 1.0 % Neut % (Auto) 78.4 % Lymph % (Auto) 10.6 % [place] % (Auto) 9.1 % Eos % (Auto) 0.7 % Baso % (Auto) 0.2 % Neut # (Auto) 14.58 H (1.4-6.5) K/uL Lymph # (Auto) 1.96 (1.2-3.4) K/uL [place] # (Auto) 1.69 H (0.11-0.59) K/uL Eos # (Auto) 0.13 (0-0.5) K/uL Baso # (Auto) 0.03 (0-0.2) K/uL Immature Gran # (Auto) 0.18 H (0.00-0.02) K/uL Neutrophils % (Manual) 74.4 % Lymphocytes % (Manual) 21.1 % Monocytes % (Manual) 1.8 % Eosinophils % (Manual) 0.9 % Basophils % (Manual) 1.8 % Neutrophils # (Manual) 13.12 H (1.4-6.5) K/uL Total Absolute Neuts 13.12 H (1.4-6.5) K/uL Lymphocytes # (Manual) 3.72 H (1.2-3.4) K/uL Total Abs Lymphocytes 3.72 H (1.2-3.4) K/uL Monocytes # (Manual) 0.32 (0.11-0.59) K/uL Eosinophils # (Manual) 0.16 (0-0.5) K/uL Basophils # (Manual) 0.32 H (0-0.2) K/uL Sodium (136-145) mmol/L Potassium (3.5-5.1) mmol/L Chloride (98-107) mmol/L Carbon Dioxide (21-32) mmol/L Anion Gap (3-11) BUN (6-23) mg/dl Creatinine (0.6-1.2) mg/dl Est Cr Clr Drug Dosing ml/min Est GFR ( Amer) ml/min Est GFR (Non-Af Amer) ml/min Fasting Glucose (70-99) mg/dl Calcium (8.5-10.1) mg/dl Total Bilirubin (0.2-1.0) mg/dl AST (13-39) U/L ALT (7-52) U/L Alkaline Phosphatase (34-104) U/L Total Protein (6.0-8.3) gm/dl Albumin (3.4-5.0) gm/dl Globulin (2.5-4.0) gm/dl Albumin/Globulin Ratio (0.9-2) PE: General: Alert, orientedx3, NAD Abd: soft, NT, fundus firm, below Umbilicus, incision C/D/I Perineum intact, Lochia rubra minimal Ext; NT, no edema, HOMANS Sign neg AP: 36 yo s/p Primary Csec, pod# 2 VSS Afebrile doing well Continue routine care All questions were answered D/C home , fu in office Results & Data ([facility]) Vital Signs (Past 12 Hours) Vital Signs Temp Pulse Resp BP 03/13/22 08:00 36.1 C L 109 H 18 132/88
[2022-03-13] MEDS ORDERED: PERCOCET 5/325MG HOMEPACK PO ONE (13:31)
--- NOTE | 2022-03-18 09:43 | Discharge Summary (DS) ---
DATE OF ADMISSION: 03/10/2022. DATE OF DISCHARGE: 03/13/2022. DETAILS OF ADMISSION: The patient is a 36-year-old G7, P1-0-5-1 at 40 weeks and 4 days of gestation, who was admitted on 03/10/2022 for induction of labor for postdates. Her H and P is done by Dr. Cassie yip. She was placed in the Cervidil for cervical ripening, which was removed after 12 hours. Her cer vix was unchanged. She was not having contractions. After that she was given Cytotec every 4 hours t o continue with induction of labor for postdates and in the morning of 03/11/2022 when I came, allen leavitt was not having contractions and was not in labor. When I checked her cervix, I could not feel any presenting part. I performed a bedside ultrasound and confirmed a breech presentation by ultrasound. After discussion of all the possibilities, we decided to proceed with a primary for kalia padgett of infant in breech presentation. On 03/11/2012 in the afternoon she delivered a viable female in mark in complete breech presentation, Apgars were 8/9, weight was 4269 grams. Her surgery was uncomp licated. See dictated op note for details. On postoperative period, the patient was doing well, vit al signs stable, afebrile. Urine output was adequate. On postoperative day #1, the patient was doin g well, vital signs stable, afebrile. She was passing gas. She was advanced to regular diet, ambula stephy. She was . Incision was clean, dry and intact. Extremities were nontender, no selene ma. On postop day #2, the patient was doing well, vital signs stable, afebrile, passing gas, moving her bowels and she was tolerating regular diet. Bleeding was minimal. Her incision was clean, dry a nd intact and her H and H was 10/30. The patient desired to be discharged on postop day #2. Dischar ge instructions were given. Prescriptions were written for pain. She is to be seen in the office in a week for incision check. Job ID: [id number]
== END 2022-03-13 16:25 | disposition home or self-care (01) | DRG 788 ==
LOC: 4S1 03-10 07:37 → 4E2 03-11 17:41